=== PATIENT | female | born 1965 | race Hispanic/Latino ===

== ENCOUNTER 2016-10-30 11:20 | Outpatient (CLI) | payer BC ==
--- NOTE | 2016-10-30 15:29 | Mammography Report ---
BILATERAL DIGITAL SCREENING MAMMOGRAM : 10/30/16 11:20:00 CLINICAL: Routine screening.Known bilateral cysts. COMPARISON:09/30/15 and 09/25/14 FINDINGS: The breasts are heterogeneously dense, which may obscure small masses and limit the sensitivity of mammography. A right inner focal asymmetry is new compared to previous exams and requires additional imaging.No architectural distortion or suspicious calcifications.The left breast is negative. IMPRESSION: Right asymmetry requiring further workup. BI-RADS CATEGORY: 0 -- Additional Imaging Evaluation Required RECOMMENDATION: Recall for right lateralmedial and spot compression MLO and CC views and right breast ultrasound. ACR BI-RADS MAMMOGRAPHIC CODES: 0 = Needs additional imaging evaluation; 1 = Negative; 2 = Benign; 3 = Probably benign; 4 = Suspicious; 5 = Malignant; 6 = Known biopsy-proven malignancy COMMENT: 1. Dense breast tissue, i.e., adenosis, fibrocystic changes, etc., may obscure an underlying neoplasm. 2. Approximately 10% of cancers are not detected with mammography. 3. A negative mammography report should not delay biopsy if a clinically suspicious mass is present. COMMENT: Patient follow-up letters are generated via our [employer] application.
== END 2016-10-30 11:21 | disposition home or self-care (01) ==
LOC: SPVWC 11:20
PROVIDERS: ATTEND Obstetrics & Gynecology
DX: Z12.31 Encounter for screening mammogram for malignant neoplasm of breast (principal)
CPT/HCPCS: 77067; G0202

== ENCOUNTER 2016-11-14 09:51 | Outpatient (CLI) | payer BC ==
--- NOTE | 2016-11-14 12:07 | Ultrasound Report ---
DIAGNOSTIC RIGHT MAMMOGRAM AND TARGETED RIGHT BREAST ULTRASOUND: HISTORY: Recall for asymmetry. FINDINGS: Spot compression images in both projections confirm the presence of a mass at the 9:00 position of the right breast. Sonographic evaluation of this area demonstrates multiple cystic masses in the 9:00 area and surrounding parenchyma, the largest of which measures 2 cm x 1.2 cm. There are at least 6 cystic masses in the lateral aspect of the right breast. IMPRESSION: Multiple simple cysts with no suspicious features. BI-RADS CATEGORY: 2 = Benign ACR BI-RADS MAMMOGRAPHIC CODES: 0 = Needs additional imaging evaluation; 1 = Negative; 2 = Benign; 3 = Probably benign; 4 = Suspicious; 5 = Malignant; 6 = Known biopsy-proven malignancy COMMENT: 1. Dense breast tissue, i.e., adenosis, fibrocystic changes, etc., may obscure an underlying neoplasm. 2. Approximately 10% of cancers are not detected with mammography. 3. A negative mammography report should not delay biopsy if a clinically suspicious mass is present. RECOMMENDATION: Annual screening.
== END 2016-11-14 09:52 | disposition home or self-care (01) ==
LOC: SPVWC 09:51
PROVIDERS: ATTEND Obstetrics & Gynecology
DX: N60.01 Solitary cyst of right breast (principal); R92.2 Inconclusive mammogram
CPT/HCPCS: 76642; G0206

== ENCOUNTER 2018-10-17 09:21 | Outpatient (CLI) | payer BC ==
--- NOTE | 2018-10-17 10:32 | Ultrasound Report ---
BILATERAL DIGITAL DIAGNOSTIC MAMMOGRAM with CAD and LEFT BREAST ULTRASOUND: 10/17/18 CLINICAL: A painful tender left breast lump. History of bilateral cysts. COMPARISON:10/30/16 and 11/14/16 mammograms and right breast ultrasound. 10/19/15 left breast ultrasound. FINDINGS: The breasts are heterogeneously dense, which may obscure small masses.An oval partially circumscribed left retroareolar mass correlates with the symptomatic lump. It measures approximately 3 cm.No other mass and no architectural distortion or suspicious calcifications. The right breast is negative. Ultrasound of the left breast demonstrated an oval slightly irregular cyst at 12 o'clock 3 cm from the nipple measuring 3.6 x 3.4 x 2.5 cm. It correlates with the tender palpable lump and has increased in size from 2 cm on the last exam. An additional benign cyst at 12 o'clock 4 cm from the nipple measures 1.0 x 0.9 x 0.8 cm. No solid mass or shadowing. IMPRESSION: A symptomatic painful benign 3.6 cm left breast cyst at 12 o'clock 3 cm from the nipple. Negative right breast. BI-RADS CATEGORY: 2 -- Benign RECOMMENDATION: Ultrasound guided left cyst aspiration for pain relief and routine mammographic screening in one year. COMMENT: Patient follow-up letters are generated by our [employer] application.
== END 2018-10-17 09:22 | disposition home or self-care (01) ==
LOC: SPVWC 09:21
PROVIDERS: ATTEND Obstetrics & Gynecology
DX: N63.22 Unspecified lump in the left breast, upper inner quadrant (principal)
CPT/HCPCS: 77066

== ENCOUNTER 2020-10-12 16:01 | Outpatient (CLI) | payer BC ==
--- NOTE | 2020-10-13 07:34 | Mammography Report ---
DIGITAL SCREENING MAMMOGRAM WITH CAD, 10/12/2020 CLINICAL INFORMATION / INDICATION: Routine screening mammography. TECHNIQUE: Digital bilateral 2D mammography was obtained in the craniocaudal and mediolateral obliqu e projections. This examination was interpreted with the benefit of Computer-Aided Detection analysis . COMPARISON: 09/30/2015 FINDINGS: Breast Density: The breasts are heterogeneously dense, which may obscure small masses. No dominant mass, suspicious calcifications, or architectural distortion in either breast. Significant weight gain is noted in the interval. IMPRESSION: No mammographic evidence of malignancy. Follow up recommendation: Routine yearly BI-RADS Category 1: Negative. A "normal" or negative report should not discourage follow up or biopsy of a clinically significant f inding. A written summary of these findings will be mailed to the patient. The patient will be entered into a mammography reporting system which will generate a reminder letter for the patient's next appointmen t at the appropriate interval. The [employer] recommends yearly mammograms starting at age 40 and continuing as l gisel as a woman is in good health. Breast MRI is recommended for women with an approximate 20-25% or greater lifetime risk of breast cancer, including women with a strong family history of breast or ova ramu cancer or who have been treated for Hodgkin's disease. Signer Name: Gregg Nina MD Signed: 10/13/2020 7:29 AM Workstation Name: [id number]
== END 2020-10-12 16:02 | disposition home or self-care (01) ==
LOC: SPVWC 16:01
PROVIDERS: ATTEND Obstetrics & Gynecology
DX: Z12.31 Encounter for screening mammogram for malignant neoplasm of breast (principal)
CPT/HCPCS: 77067